=== PATIENT | female | born 1990 | race Two or more races ===

== ENCOUNTER 2018-04-23 15:45 | Emergency (ER) | payer OTHER ==
[~2018-04-23] VITALS: Ht 162.6 cm; Wt 90.7 kg
[~2018-04-23 15:45] MED LIST: PRENATAL CAPLE1 EACH PO
== END 2018-04-23 19:52 | disposition home or self-care (01) ==
LOC: ER 15:45
DX: O26.892 Other specified pregnancy related conditions, second trimester (principal); R10.2 Pelvic and perineal pain; Z34.82 Encounter for supervision of other normal pregnancy, second trimester